=== PATIENT | female | born 1980 | race African-American/Black ===

== ENCOUNTER 2020-08-16 18:24 | Emergency (ER) | payer OTHER, MEDICAID ==
[~2020-08-16] VITALS: Ht 167.6 cm; Wt 57.0 kg
[2020-08-16] MEDS ORDERED: SODIUM CHLORIDE 0.9% 1,000 ML IV ONE (19:00)
[2020-08-16 20:33] LABS: BASOPHILS % 1.1 % (0.0-2.0); EOSINOPHILS % 1.2 % (0.0-5.0); HEMATOCRIT. 33.1 % (36.0-48.0); HEMOGLOBIN. 10.1 g/dL (12.0-16.0); LYMPHOCYTES % 25.5 % (20.0-50.0); MEAN CORPUSCULAR HEMOGLOBIN 19.6 pg (28.0-32.0); MEAN PLATELET VOLUME 5.9 fl (7.4-10.4); MONOCYTES % 4.8 % (2.0-8.0); NEUTROPHILS % 67.4 % (40.0-76.0); PLATELET 480 x1000/uL (130-400); RED BLOOD CELL COUNT 5.17 mill/uL (4.2-5.4); RED CELL DISTRIBUTION WIDTH 22.3 % (11.6-14.6)
[2020-08-16 20:46] LABS: CHLORIDE 106 mEq/L (98-107)
[2020-08-16 20:51] LABS: HCG SCREEN NEGATIVE
[2020-08-16 20:52] LABS: ETHANOL BLOOD < 10 mg/dL
[2020-08-16 21:16] LABS: PLATELET ESTIMATE INCREASED
[2020-08-17 05:23] VITALS: BP 125/81
== END 2020-08-17 05:24 | disposition home or self-care (01) ==
LOC: ER 18:24 → EDBD 18:24 → ER 08-17 05:24
DX: F14.188 Cocaine abuse with other cocaine-induced disorder (principal); R55 Syncope and collapse; S62.397A Other fracture of fifth metacarpal bone, left hand, initial encounter for closed fracture; T73.0XXA Starvation, initial encounter; X58.XXXA Exposure to other specified factors, initial encounter; Y93.89 Activity, other specified; Y92.488 Other paved roadways as the place of occurrence of the external cause; Z59.0 Homelessness
CPT/HCPCS: 36415; 73110; 73130; 80053; 80320; 84703; 85025; 93005; 96360; 99284; J7030; G0480